=== PATIENT | female | born 1950 | race Two or more races ===

== ENCOUNTER → 2017-02-04 | Outpatient (CLI) | payer BC ==
[2017-02-04 14:32] LABS: OBC FLU VALID
== END | disposition home or self-care (01) ==
LOC: OPS 13:36
PROVIDERS: ATTEND Internal Medicine
DX: J11.1 Influenza due to unidentified influenza virus with other respiratory manifestations (principal); R50.9 Fever, unspecified
CPT/HCPCS: 87804; 99211

== ENCOUNTER → 2021-09-18 | Outpatient (CLI) | payer OTHER ==
[~2021-09-18] MED LIST: REGADENOSON 0.4 MG/5 ML DISP.SYRIN. IV ONE
--- NOTE | 2021-09-18 16:31 | CARD ---
MR#: [id number] Date of Study: 09/18/2021 Ordering Physician: GINETTE CEJA, Referring Physician: GINETTE CEJA Tech: Sivan Rogers [facility] APPROVED REPORT EXAM: Two-dimensional and M-mode echocardiogram with Doppler and color Doppler. Other Information Quality : AverageHR: 64bpm Rhythm : NSR INDICATION Dyspnea RISK FACTORS Hypertension Hyperlipidemia Diabetes 2D DIMENSIONS RVDd2.7 (2.9-3.5cm)Left Atrium(2D)3.5 (1.6-4.0cm) IVSd0.9 (0.7-1.1cm)Aortic Root(2D)2.7 (2.0-3.7cm) LVDd3.9 (3.9-5.9cm)LVOT Diameter1.8 (1.8-2.4cm) PWd0.9 (0.7-1.1cm)LVDs2.5 (2.5-4.0cm) FS (%) 35.7 %SV42.9 ml LVEF(%)65.9 (>50%) Aortic Valve AoV Peak Sukhi.122.2cm/sAoV VTI25.0cm AO Peak GR.6.0mmHgLVOT Peak Sukih.91.6cm/s AO Mean GR.3mmHgAVA (VMAX)1.85cm2 Mitral Valve MV E Pgniprpn89.5cm/sMV DECEL SIHD491za MV A Bkqtryza74.7cm/sE/A Ratio0.7 Pulmonary Valve PV Peak Nbxqrbyl99.6cm/s Tricuspid Valve TR P. Wtrgctit346wp/sTR Peak Gr.21mmHg LEFT VENTRICLE The left ventricle is normal size. There is normal left ventricular wall thickness. The left ventricu lar systolic function is normal and the ejection fraction is within normal range. Estimated ejection fraction 55-60%. There is normal LV segmental wall motion. Transmitral Doppler flow pattern is Grade I-abnormal relaxation pattern. RIGHT VENTRICLE The right ventricle is normal size. There is normal right ventricular wall thickness. The right ventr icular systolic function is normal. ATRIA The left atrium size is normal. The right atrium size is normal. The interatrial septum is intact wit h no evidence for an atrial septal defect or patent foramen ovale as noted on 2-D or Doppler imaging. AORTIC VALVE The aortic valve is normal in structure and function. Doppler and Color Flow revealed no significant aortic regurgitation. There is no significant aortic valvular stenosis. MITRAL VALVE The mitral valve is normal in structure and function. There is no evidence of mitral valve prolapse. There is no mitral valve stenosis. Doppler and Color-flow revealed mild mitral regurgitation. TRICUSPID VALVE The tricuspid valve is normal in structure and function. Doppler and Color Flow revealed trace tricus pid regurgitation. Estimated PAP 23 mmHg. There is no tricuspid valve stenosis. PULMONIC VALVE Doppler and Color Flow revealed mild pulmonic valvular regurgitation. There is no pulmonic valvular s tenosis. GREAT VESSELS The aortic root is normal in size. The ascending aorta is normal in size. The IVC is normal in size a nd collapses >50% with inspiration. PERICARDIAL EFFUSION There is no evidence of significant pericardial effusion. Critical Notification Critical Value: No <Conclusion> The left ventricular systolic function is normal and the ejection fraction is within normal range. E stimated ejection fraction 55-60%. There is normal LV segmental wall motion. Doppler and Color-flow revealed mild mitral regurgitation. Signed by : Santiago Jenkins, Electronically Approved : 09/18/2021 16:31:03
--- NOTE | 2021-09-21 12:11 | RAD ---
MR#: [id number] Date of Study: 09/18/2021 Ordering Physician: GINETTE CEJA, Referring Physician: KERON MA Tech: RT Lauren ValenciaR) (N) APPROVED REPORT Test Type: Pharmacological Stress Nurse/Tech: Monserrat Barragan RN Test Indications: Dyspnea on exertion Cardiac History: Family history, Hypertension, Diabetes Medications: See Electronic Medical Record Medical History: See Electronic Medical Record Resting ECG: SR with PVCs Resting Heart Rate: 61 bpm Resting Blood Pressure: 139/65mmHg Pretest Chest Pain: No chest pain Nurse/Tech Notes S1,S2 and lungs clear to auscultation. Consent: The procedure was explained to the patient in lay terms. Informed consent was witnessed. Yehuda eout was entered into [employer]. History and Stress Test performed by RT Annie (R) (N) Pharm. Details Pharmacologic stress testing was performed using 0.4mg per 5ml of regadenoson given intravenously ove r 7-10 seconds. Stress Symptoms Nausea,Dyspnea POST EXERCISE Reason for Termination: Infusion complete Target HR: Yes Max HR: 102 bpm 81% of Maximum Predicted HR: 125 bpm Max Blood Pressure: 133/61mmHg Blood Pressure response to exercise: Normal blood pressure response during stress. Heart Rate response to exercise: WNL Chest Pain: No. Arrhythmia: Yes. PVCs ST Change: No. INTERPRETATION Stress EKG Conclusion: No evidence of stress induced EKG changes. Imaging Protocol IMAGE PROTOCOL: Rest Tc-99m/stress Tc-99m 1 day Rest: Stress: Viability: Radiopharm.Tc99m ReugbsvvlZi73s Sestamibi Pmoy92tOd 31mCi Duration 15min. 10min. Img Date 09/18/2021 09/18/2021 Inj-Img Exln83jfj. 60min. Rest Admin Site:IV - Left AntecubitalAdministrator:RT Lauren ValenciaR)(N) Stress Admin Site: IV - Left AntecubitalAdministrator: DEVIN Boyle, ARRT (R)(N) STRESS DATA End Diast. Vol.47.0mlAv. Heart Rate75.0bpm End Syst. Vol.5.0mlCO Index BSA0.0L/min Myocardial Mass92.0gEject. Yswaefua15.0% Stress Rates Pk. Fill Rate3.20EDV/secLVtime Pk. Fill 102.60msec Pk. Empty Rate3.58ESV/secLVtime Pk. Eject83.80msec 1/3 Pk. Fill2.04EDV/sec Stress Scores Regional WT0.00Summed WT0.00 Regional WM0.00Summed WM0.00 The rest and stress images show normal perfusion, normal contraction and thickening. LV Perf. Quant 17 Seg. SSS0.00 17 Seg. SRS0.00 17 Seg. SDS0.00 Stress Defect Extent (% LAD)0.00Rest Defect Extent (% LAD)0.00Rev. Defect Extent (% LAD)0.00 Stress Defect Extent (% LCX) 0.00Rest Defect Extent (% LCX)0.00Rev. Defect Extent (% LCX)0.00 Stress Defect Extent (% RCA)0.00Rest Defect Extent (% RCA)0.00Rev. Defect Extent (% RCA)0.00 Stress Defect Extent (% PEG)0.00Rest Defect Extent (% PEG)0.00Rev. Defect Extent (% PEG)0.00 Other Information Quality:Good Risk Assessment: Low Risk Conclusion 1. No evidence of EKG changes with stress testing. 2. Normal perfusion at stress/rest. 3. Low risk study. 4. EF > 60%. Signed by : Santiago Jenkins, Electronically Approved : 09/21/2021 12:11:23
== END ==
LOC: NM 08:46
PROVIDERS: ATTEND Internal Medicine Cardiovascular Disease
DX: I08.8 Other rheumatic multiple valve diseases (principal); R06.09 Other forms of dyspnea; R06.00 Dyspnea, unspecified; R11.0 Nausea
CPT/HCPCS: 78452; 93017; 93306; A9500; J2785